=== PATIENT | female | born 1950 | race Caucasian/White ===

== ENCOUNTER 2023-05-06 07:51 | Emergency (ER) | payer MEDICARE, SELFPAY ==
[2023-05-06 08:03] VITALS: BP 165/82; PULSE 87; RESP 16; TEMP 36.8; O2SAT 99; BMI 30.8
--- NOTE | 2023-05-06 09:48 | ED.BACK ---
HPI - Back Pain/Injury General Chief Complaint: Back Pain/Injury Stated Complaint: back pain Time Seen by Provider: 05/06/23 09:47 Source: patient and family () Mode of arrival: ambulatory Limitations: no limitations History of Present Illness HPI Narrative: This is a 72-year-old female presenting to the emergency department complaints of right-sided lower back pain, been going on for 2 days not improving. Patient reports that this pain started and gradually became worse, localized to the right lower side with radiation down the right lower extremity just above the knee, no associated trauma injury. Patient comes in in a wheelchair she is usually ambulatory however due to pain is unable to ambulate. She has been trying ice, heat, Motrin and massages at home with little to no relief. No complaints of urinary/bowel incontinence/retention, saddle paresthesias, fevers, chills, chest pain, shortness of breath, nausea, vomiting, weakness. Related Data Previous Rx's Medication Instructions Recorded lidocaine 5 % topical patch 1 patch topical DAILY PRN pain #15 05/06/23 ea morphine 15 mg immediate release 15 mg PO Q6H PRN pain 5 days #10 05/06/23 tablet tabs prednisone 50 mg tablet 50 mg PO DAILY 5 days #5 tabs 05/06/23 Allergies Allergy/AdvReac Type Severity Reaction Status Date / Time metformin Allergy Abdominal Verified 05/06/23 08:03 Pain Review of Systems Review of Systems: Constitutional : No Weight loss, No Fever, No Chills, ENT/Mouth : No Hearing loss, No Ear Pain, No Nasal Congestion, No Sinus Pain, No Hoarseness, No sore throat, No Rhinorrhea, No Swallowing Difficulty Cardiovascular : No Chest Pain, No SOB Respiratory : No Cough, No Dyspnea Gastrointestinal : No Nausea, No Vomiting, No Diarrhea, No abdominal Pain, No Hematochezia, No Melena Genitourinary : No Dysuria, No Urinary Frequency, No Hematuria, No Urinary Incontinence, Musculoskeletal : positive back pain Skin : No Skin Lesions, No rash Neuro : No Weakness, No Numbness, No Paresthesias, no loss of bowel or bladder incontinence, no saddle anesthesia Yes all other systems are reviewed and are negative PMFSH Past Medical History Attestation statement: The following information was validated with the patient. Source: old records reviewed and nursing notes reviewed Social History Social History Smoked in Last 30 Days: No Use of substances other than those prescribed or required for medical reasons: No Advance Directives: No Advance Directives Information Provided: No Physical Exam Vital Signs: Vital Signs: Last Vital Signs Temp 98.3 F 05/06/23 08:03 Pulse 85 05/06/23 11:43 Resp 16 05/06/23 11:43 BP 175/88 H 05/06/23 11:43 Pulse Ox 98 05/06/23 11:43 O2 Del Method Room Air 05/06/23 11:43 BMI result Body Mass Index 30.8 vss hypertension likely secondary to pain Appearance: Alert.? Oriented X3.? No acute distress.? Head: Normocephalic, atraumatic, no step-offs or deformities Eyes: Pupils equal, round and reactive to light.? ENT: Pharynx normal.? Neck: Normal inspection.? Neck supple.? CVS: Normal heart rate and rhythm.? Pulses normal.? Respiratory: No respiratory distress.? Breath sounds normal.? Abdomen: Soft and nontender.? Skin: Skin warm and dry.? Normal skin color.? Normal skin turgor.? Extremities: No lower extremity edema.? No calf ttp. 5/5 strength to bilateral upper and lower extremities Back: No midline tenderness, no C-spine tenderness, full range of motion, no CVA tenderness bilaterally + right-sided lumbar paraspinous tenderness extending to the right buttocks, positive straight leg raise on the right. No midline tenderness. Neuro: Oriented X 3.? No motor deficit.? No sensory deficit. CN 2-12 intact . No saddle paresthesias, ambulating with steady gait normal coordination. Course Reevaluation(s) Reevaluation #1: Patient now able to ambulate without difficulty, urine pending. Plan is for discharge home with [place] follow-up. Educated patient on diagnosis and treatment plan, answered all question, patient verbalizes understanding. At this time patient will be discharged home, advised to return with new or worsening symptoms. Educated on worrisome signs and symptoms and when to return. At this time I feel comfortable discharge home. Time: 11:36 Medications Administered Discontinued Medications Generic Name Dose Route Start Last Admin Trade Name Freq PRN Reason Stop Dose Admin Lidocaine 1 patch 05/06/23 09:48 05/06/23 10:03 Lidocaine 4 % Patch Adh..Patch TRANSDERMA 05/06/23 09:49 1 patch ONCE ONE Administration Protocol Morphine Sulfate 15 mg 05/06/23 09:48 05/06/23 10:03 Morphine Sulfate Immed Release 15 Mg Tablet PO 05/06/23 09:49 15 mg ONCE ONE Administration Medical Decision Making Medical Decision Making [facility] Narrative: 72 year old female presents with right lower back pain with radiation to right lower extremity. No associated trauma. No red flag symptoms Physical exam significant for No midline tenderness, no C-spine tenderness, full range of motion, no CVA tenderness bilaterally + right-sided lumbar paraspinous tenderness extending to the right buttocks, positive straight leg raise on the right. No midline tenderness. Concerns for possible herniated disc versus lumbago versus lumbar paraspinous muscle spasms. Unlikely cauda equina, epidural abscess, cord compression. I do not suspect pyelonephritis, kidney stone, obstructing uropathy Plan at this time pain control, urine. Differential Diagnosis Differential Diagnoses: The differential diagnosis associated with the presentation includes Concerns for possible herniated disc versus lumbago versus lumbar paraspinous muscle spasms. Unlikely cauda equina, epidural abscess, cord compression. I do not suspect pyelonephritis, kidney stone, obstructing uropathy Admission/Observation Consideration of admission/observation: Escalation of care including admission/observation considered Unlikely Lab Data Labs: Lab Results 05/06/23 Range/Units 11:38 Urine Color Yellow Urine Appearance Clear Urine pH 5.5 (5.0-9.0) Ur Specific [place] 1.010 (1.005-1.025) Urine Protein Negative (Neg-Trace) mg/dL Urine Glucose (UA) Negative (Negative) mg/dL Urine Ketones Negative (Negative) mg/dL Urine Blood Trace (Negative) Urine Nitrite Negative (Negative) Ur Leukocyte Esterase Negative (Negative) Urine RBC 0-2 (0-2) /HPF Urine WBC 0-5 (0-5) /HPF Ur Squamous Epith Cells 0-2 (0-2) /HPF Urine Bacteria None Seen (None Seen) Hyaline Casts 0-2 (0-2) /LPF Tests considered The following testing was considered but not selected: Considered imaging of back however no red flag symptoms, no trauma no indication for MRI, CT scan or x-ray. Prescription Management I considered prescription management with: Pain Medication Critical Care Time Critical Care Time Critical Care Time: No Discharge Plan Discharge Clinical Impression: Sciatica Patient Disposition: Home, Self-Care Instructions: Sciatica (ED), Back Pain (ED), Lower Back Exercises (ED) Additional Instructions: Take your medications as prescribed. If you were prescribed antibiotics today, it is important that you take your medication to their entirety, do not skip any doses, do not finish them early. Follow-up with your primary care provider this week. Return to the emergency department with new or worsening symptoms. Such as fevers, chills, chest pain, shortness of breath, nausea, vomiting, dizziness, headache, vision changes, lethargy In case of emergency call 911 A narcotic has been sent to your pharmacy please take this as prescribed. Do not take more than the prescribed dose. Narcotic medications can cause addiction. Please do not mix them with alcohol. Do not take them while driving or operating machinery. Do not take them with any other narcotics. Do not share them with friends or family. They can cause constipation. Take them only for severe pain. Prescriptions: New prednisone 50 mg tablet 50 mg PO DAILY 5 Days Qty: 5 0RF lidocaine 5 % adhesive patch,medicated 1 patch topical DAILY PRN (Reason: pain) Qty: 15 0RF Rx Instructions: leave on most painful area for up to 12 hrs morphine 15 mg tablet 15 mg PO Q6H PRN (Reason: pain) 5 Days Qty: 10 0RF Rx Instructions: Partial Fill upon patient request. Referrals: [facility] [Provider Group] - 2 days Yun Arriaga NP [Primary Care Provider] - 2 days
[2023-05-06] MEDS: Morphine Sulfate Immed Release 15 MG TABLET PO (10:03)
[2023-05-06] MEDS: Lidocaine 4 % Patch ADH..PATCH 1 PATCH TRANSDERMA (10:03)
--- NOTE | 2023-05-06 10:03 | PC.NURSE ---
medication administered per provider order. pt rating pain level 10/10 - will reassess.
--- NOTE | 2023-05-06 11:08 | PC.NURSE ---
pt pain level reassessed - pt stating pain level decreased to a 8/0 at this time. pt awaiting xray results at this time.
--- NOTE | 2023-05-06 11:31 | PC.NURSE ---
tech did ambulation trial on pt - pt walked w/ steady gait/had no difficulties at this time.
[2023-05-06 11:43] VITALS: BP 175/88; PULSE 85; RESP 16; O2SAT 98
--- NOTE | 2023-05-06 11:45 | PC.NURSE ---
urine obtained/sent to lab by tech.
[2023-05-06 11:46] LABS: Appearance Urine Clear; Color Urine Yellow; Glucose Urine UA Negative (Negative); Leukocyte Esterase Urine Negative (Negative); Nitrite Urine Negative (Negative); PH 5.5 (5.0-9.0); UMIC TRIGGER UACC YES; Urine Blood Trace (Negative); Urine Ketones Negative (Negative); Urine Protein Negative (Neg-Trace)
[2023-05-06 11:50] LABS: Bacteria Urine None Seen (None Seen); Hyaline Casts Urine 0-2 /LPF (0-2); RBC Urine 0-2 /HPF (0-2); Squamous Epithelial Cell Urine 0-2 /HPF (0-2); WBC Urine 0-5 /HPF (0-5)
== END 2023-05-06 12:05 | disposition home or self-care (01) ==
PROVIDERS: Physician Assistant; Emergency Provider Emergency Medicine; PCP Nurse Practitioner Family
DX: M54.41 Lumbago with sciatica, right side (principal); Z79.899 Other long term (current) drug therapy
CPT/HCPCS: 81001; 99283; 99284